=== PATIENT | female | born 1955 | race African-American/Black ===

== ENCOUNTER 2021-01-26 01:26 | Inpatient (IN) | payer MEDICARE, OTHER ==
[~2021-01-26] VITALS: Ht 157.5 cm; Wt 79.8 kg
[2021-01-26] MEDS ORDERED: METHYLPREDNISOLONE SOD SUCC 125 MG/2 ML VIAL IV STA (01:35)
[2021-01-26] MEDS ORDERED: IPRATROPIUM BROMIDE (0.02%) 0.5MG/2.5ML NEB HHN STA (01:35)
[2021-01-26] MEDS ORDERED: MAGNESIUM 2 G PREMIX 50 ML IV ONE (01:45)
[2021-01-26] MEDS: ALBUTEROL (0.083%) 2.5MG/3ML NEB HHN SCH ×3 (02:09→03:57)
[2021-01-26 02:14] LABS: BG BASE EXCESS -0.4 mmol/L (-2.0-2.0); BG DEOXYHEMOGLOBIN 7.8 % (0.0-5.0); BG FRACTION INSPIRED OXYGEN 21; BG METHEMOGLOBIN 0.3 % (0.0-1.5); BG OXYHEMOGLOBIN 89.9 % (94.0-97.0); BG PCO2 44.1 mmHg (35.0-45.0); BG PH 7.372 (7.350-7.450); BG PO2 67.1 mmHg (75.0-100.0); BG SAMPLE SITE RIGHT RADIAL; BG TOTAL HEMOGLOBIN 12.9 g/dL (12.0-18.0); BG VENT MODE ROOM AIR
[2021-01-26] MEDS ORDERED: ACETAMINOPHEN 325MG TABLET PO ONE (03:15)
[2021-01-26 03:35] LABS: BASOPHILS % 0.3 % (0.0-2.0); EOSINOPHILS % 0.5 % (0.0-5.0); HEMATOCRIT. 37.1 % (36.0-48.0); HEMOGLOBIN. 11.5 g/dL (12.0-16.0); LYMPHOCYTES % 20.4 % (20.0-50.0); MEAN CORPUSCULAR HEMOGLOBIN 22.5 pg (28.0-32.0); MEAN CORPUSCULAR VOLUME 72.7 fL (81.0-99.0); MEAN PLATELET VOLUME 8.3 fl (7.4-10.4); MONOCYTES % 5.4 % (2.0-8.0); NEUTROPHILS % 73.4 % (40.0-76.0); PLATELET 253 x1000/uL (130-400); RED CELL DISTRIBUTION WIDTH 16.4 % (11.6-14.6)
[2021-01-26 03:42] LABS: CHLORIDE 99 mEq/L (98-107)
[2021-01-26] MEDS ORDERED: SODIUM CHLORIDE 0.9% 1,000 ML IV ONE (04:30)
[2021-01-26] MEDS ORDERED: IPRATROPIUM/ALBUTEROL 0.5-3(2.5)MG/3ML NEB HHN PRN (06:45)
[2021-01-26] MEDS ORDERED: DOCUSATE SODIUM 100MG CAPSULE PO PRN (06:45)
[2021-01-26] MEDS ORDERED: MAGNESIUM/ALUMINUM HYDROXIDE/SIMETHICONE 30ML UDC PO PRN (06:45)
[2021-01-26] MEDS ORDERED: ACETAMINOPHEN 325MG TABLET PO PRN (06:45)
[2021-01-26] MEDS ORDERED: GUAIFENESIN 200MG/10ML SUGAR FREE UDC PO PRN (06:45)
[2021-01-26] MEDS ORDERED: LEVOFLOXACIN 500MG PREMIX 100 ML IV SCH (06:45)
[2021-01-26] MEDS ORDERED: ONDANSETRON HCL 4MG/2ML INJ IV PRN (06:45)
[2021-01-26] MEDS ORDERED: NALOXONE HCL 0.4MG/ML VIAL IV PRN (07:30)
[2021-01-26] MEDS: LEVOFLOXACIN 750MG PREMIX 150 ML IV SCH (08:43)
[2021-01-26] MEDS: ASPIRIN 81MG EC TABLET PO SCH (10:49)
[2021-01-26] MEDS: ENOXAPARIN 40MG/0.4ML SYR SUBCUT SCH (10:50)
[2021-01-26] MEDS: CLONIDINE 0.1MG TABLET PO PRN (10:51)
[2021-01-26] MEDS: METHYLPREDNISOLONE SOD SUCC 125 MG/2 ML VIAL IV SCH ×3 (10:52→21:51)
[2021-01-26] MEDS: HYDROCODONE/ACETAMINOPHEN 5/325MG TABLET PO PRN ×2 (10:54→21:51)
[2021-01-26] MEDS: AMLODIPINE 10MG TABLET PO SCH (11:21)
[2021-01-26 16:36] LABS: CREATINE KINASE 213 IU/L (26-192)
[2021-01-26] MEDS: IPRATROPIUM/ALBUTEROL 0.5-3(2.5)MG/3ML NEB HHN SCH (21:06)
[2021-01-26] MEDS: LEVETIRACETAM 500MG TABLET PO SCH (23:11)
[2021-01-26 23:32] LABS: CREATINE KINASE 251 IU/L (26-192)
[2021-01-27] VITALS (7 sets, daily range): BP systolic 132–153; BP diastolic 60–91
[2021-01-27] MEDS: METHYLPREDNISOLONE SOD SUCC 125 MG/2 ML VIAL IV SCH ×3 (01:01→11:27)
[2021-01-27] MEDS: IPRATROPIUM/ALBUTEROL 0.5-3(2.5)MG/3ML NEB HHN SCH ×2 (01:56→10:14)
[2021-01-27] MEDS ORDERED: MIRT45TA59 MT (04:49)
[2021-01-27] MEDS ORDERED: KEPP500 MT (04:49)
[2021-01-27] MEDS ORDERED: AM100 MT (04:49)
[2021-01-27] MEDS ORDERED: [UNRECOGNIZED DRUG - OTHER] PO (04:49)
[2021-01-27 07:24] LABS: BG BASE EXCESS 0.8 mmol/L (-2.0-2.0); BG CARBOXYHEMOGLOBIN 0.7 % (0.5-1.5); BG HCO3 ACT 25.6 mmol/L (22.0-26.0); BG METHEMOGLOBIN 0.3 % (0.0-1.5); BG OXYGEN SATURATION 90.9 % (92.0-98.5); BG PCO2 41.8 mmHg (35.0-45.0); BG PH 7.405 (7.350-7.450); BG SAMPLE SITE RIGHT RADIAL; BG TOTAL HEMOGLOBIN 13.1 g/dL (12.0-18.0); BG VENT MODE ROOM AIR
[2021-01-27] MEDS ORDERED: PNEUMOCOCCAL 23-VAL P-SAC VAC 0.5 ML IM ONE (08:00)
[2021-01-27] MEDS: ASPIRIN 81MG EC TABLET PO SCH (08:17)
[2021-01-27] MEDS: LEVETIRACETAM 500MG TABLET PO SCH ×2 (08:17→20:31)
[2021-01-27] MEDS: ENOXAPARIN 40MG/0.4ML SYR SUBCUT SCH (08:17)
[2021-01-27] MEDS: AMLODIPINE 10MG TABLET PO SCH (08:18)
[2021-01-27] MEDS: HYDROCODONE/ACETAMINOPHEN 5/325MG TABLET PO PRN ×2 (08:20→20:47)
[2021-01-27] MEDS ORDERED: LIDOCAINE HCL/PF 1% 2ML VIAL ONE (10:00)
[2021-01-27] MEDS ORDERED: INFLUENZA VACCINE 05/PF 0.5 ML SYRINGE IM ONE (10:00)
[2021-01-27] MEDS ORDERED: AMIT-188 PO (11:50)
[2021-01-27] MEDS ORDERED: LACTULOSE 20G/30ML UDC PO NR (12:00)
[2021-01-27 16:16] LABS: CHLORIDE 102 mEq/L (98-107); HEMATOCRIT. 33.3 % (36.0-48.0); HEMOGLOBIN. 10.8 g/dL (12.0-16.0); MEAN CORPUSCULAR HEMOGLOBIN 23.3 pg (28.0-32.0); MEAN CORPUSCULAR VOLUME 71.9 fL (81.0-99.0); MEAN PLATELET VOLUME 9.6 fl (7.4-10.4); PLATELET 230 x1000/uL (130-400); RED BLOOD CELL COUNT 4.63 mill/uL (4.2-5.4); RED CELL DISTRIBUTION WIDTH 16.5 % (11.6-14.6)
[2021-01-27 16:24] LABS: LDL CHOLESTEROL 117 mg/dL (5-100)
[2021-01-27 16:25] LABS: HDL CHOLESTEROL 55 mg/dL (40-59)
[2021-01-27] MEDS ORDERED: NA PHOS,M-B/NA PHOS,DI-BA ENEMA 118ML PR NR (16:45)
[2021-01-27] MEDS: CLONIDINE 0.1MG TABLET PO PRN (16:55)
[2021-01-27 17:54] LABS: PLATELET ESTIMATE NORMAL
[2021-01-27] MEDS: METHYLPREDNISOLONE SOD SUCC 40 MG/ML VIAL IV SCH (20:32)
[2021-01-27] MEDS: ZOLPIDEM TARTRATE 5MG TABLET PO PRN (20:47)
[2021-01-28] VITALS: BP 118/50
[2021-01-28 04:00] VITALS: BP 126/69
[2021-01-28 08:00] VITALS: BP 122/63
[2021-01-28] MEDS: ASPIRIN 81MG EC TABLET PO SCH (08:56)
[2021-01-28] MEDS: LEVETIRACETAM 500MG TABLET PO SCH ×2 (08:56→20:40)
[2021-01-28] MEDS: AMLODIPINE 10MG TABLET PO SCH (08:56)
[2021-01-28] MEDS: METHYLPREDNISOLONE SOD SUCC 40 MG/ML VIAL IV SCH (08:56)
[2021-01-28] MEDS: LEVOFLOXACIN 750MG PREMIX 150 ML IV SCH (08:56)
[2021-01-28] MEDS: ENOXAPARIN 40MG/0.4ML SYR SUBCUT SCH (08:57)
[2021-01-28 12:00] VITALS: BP 131/63
[2021-01-28 16:00] VITALS: BP 134/70
[2021-01-28] MEDS: HYDROCODONE/ACETAMINOPHEN 5/325MG TABLET PO PRN (16:25)
[2021-01-28 20:00] VITALS: BP 147/55
[2021-01-28] MEDS: ZOLPIDEM TARTRATE 5MG TABLET PO PRN (20:40)
[2021-01-29] VITALS: BP 167/77
[2021-01-29] MEDS: CLONIDINE 0.1MG TABLET PO PRN (00:35)
[2021-01-29] MEDS: HYDROCODONE/ACETAMINOPHEN 5/325MG TABLET PO PRN ×2 (00:40→21:18)
[2021-01-29 04:00] VITALS: BP 157/72
[2021-01-29 08:00] VITALS: BP 123/60
[2021-01-29] MEDS: AMLODIPINE 10MG TABLET PO SCH (08:13)
[2021-01-29] MEDS: ASPIRIN 81MG EC TABLET PO SCH (08:13)
[2021-01-29] MEDS: ENOXAPARIN 40MG/0.4ML SYR SUBCUT SCH (08:13)
[2021-01-29] MEDS: PREDNISONE 20MG TABLET PO SCH (08:13)
[2021-01-29] MEDS: LEVETIRACETAM 500MG TABLET PO SCH ×2 (08:13→21:15)
[2021-01-29 12:00] VITALS: BP 147/68
[2021-01-29] MEDS ORDERED: NA PHOS,M-B/NA PHOS,DI-BA ENEMA 118ML PR NR (15:15)
[2021-01-29 16:00] VITALS: BP 124/69
[2021-01-29 20:00] VITALS: BP 155/74
[2021-01-29] MEDS: MIRTAZAPINE 15MG TABLET PO SCH (21:15)
[2021-01-29] MEDS: ZOLPIDEM TARTRATE 5MG TABLET PO PRN (21:16)
[2021-01-29] MEDS: AMITRIPTYLINE 25MG TABLET PO SCH (21:16)
[2021-01-30] VITALS: BP 147/76
[2021-01-30 04:00] VITALS: BP 137/78
[2021-01-30] MEDS: HYDROCODONE/ACETAMINOPHEN 5/325MG TABLET PO PRN ×3 (05:25→21:02)
[2021-01-30 08:00] VITALS: BP 132/70
[2021-01-30] MEDS: LACTULOSE 20G/30ML UDC PO SCH (08:30)
[2021-01-30] MEDS: LEVETIRACETAM 500MG TABLET PO SCH ×2 (08:30→21:02)
[2021-01-30] MEDS: PREDNISONE 20MG TABLET PO SCH (08:31)
[2021-01-30] MEDS: ENOXAPARIN 40MG/0.4ML SYR SUBCUT SCH (08:31)
[2021-01-30] MEDS: ASPIRIN 81MG EC TABLET PO SCH (08:31)
[2021-01-30] MEDS: AMITRIPTYLINE 25MG TABLET PO SCH ×2 (08:31→21:05)
[2021-01-30] MEDS: AMLODIPINE 10MG TABLET PO SCH (08:31)
[2021-01-30] MEDS ORDERED: LEVOFLOXACIN 250MG TABLET PO SCH (11:00)
[2021-01-30 11:58] VITALS: BP 141/68
[2021-01-30 16:00] VITALS: BP 132/74
[2021-01-30 20:00] VITALS: BP 150/80
[2021-01-30] MEDS: MIRTAZAPINE 15MG TABLET PO SCH (21:02)
[2021-01-30] MEDS: ZOLPIDEM TARTRATE 5MG TABLET PO PRN (21:02)
[2021-01-31] VITALS: BP 191/86
[2021-01-31] MEDS: CLONIDINE 0.1MG TABLET PO PRN (00:20)
[2021-01-31 04:00] VITALS: BP 136/69
[2021-01-31 08:00] VITALS: BP 114/72
[2021-01-31] MEDS: LACTULOSE 20G/30ML UDC PO SCH (08:51)
[2021-01-31] MEDS: ENOXAPARIN 40MG/0.4ML SYR SUBCUT SCH (08:51)
[2021-01-31] MEDS: LEVETIRACETAM 500MG TABLET PO SCH ×2 (08:51→21:30)
[2021-01-31] MEDS: AMLODIPINE 10MG TABLET PO SCH (08:52)
[2021-01-31] MEDS: AMITRIPTYLINE 25MG TABLET PO SCH ×2 (08:52→21:33)
[2021-01-31] MEDS: ASPIRIN 81MG EC TABLET PO SCH (08:52)
[2021-01-31] MEDS: PREDNISONE 20MG TABLET PO SCH (08:52)
[2021-01-31 16:12] VITALS: BP 120/78
[2021-01-31 20:00] VITALS: BP 138/76
[2021-01-31] MEDS: MIRTAZAPINE 15MG TABLET PO SCH (21:30)
[2021-01-31] MEDS: ZOLPIDEM TARTRATE 5MG TABLET PO PRN (21:30)
[2021-02-01] VITALS (7 sets, daily range): BP systolic 115–162; BP diastolic 54–83
[2021-02-01] MEDS ORDERED: HYDROCODONE/ACETAMINOPHEN 5/325MG TABLET PO PRN (01:45)
[2021-02-01] MEDS: LEVETIRACETAM 500MG TABLET PO SCH ×2 (08:51→20:32)
[2021-02-01] MEDS: ENOXAPARIN 40MG/0.4ML SYR SUBCUT SCH (08:51)
[2021-02-01] MEDS: LACTULOSE 20G/30ML UDC PO SCH (08:51)
[2021-02-01] MEDS: ASPIRIN 81MG EC TABLET PO SCH (08:51)
[2021-02-01] MEDS: AMLODIPINE 10MG TABLET PO SCH (08:52)
[2021-02-01] MEDS: AMITRIPTYLINE 25MG TABLET PO SCH ×2 (08:52→20:32)
[2021-02-01] MEDS: PREDNISONE 20MG TABLET PO SCH (08:52)
[2021-02-01] MEDS: HYDROCODONE/ACETAMINOPHEN 5/325MG TABLET PO PRN (15:28)
[2021-02-01] MEDS ORDERED: ZOLPIDEM TARTRATE 5MG TABLET PO PRN (19:45)
[2021-02-01] MEDS: MIRTAZAPINE 15MG TABLET PO SCH (20:31)
[2021-02-01] MEDS: CLONIDINE 0.1MG TABLET PO PRN (23:40)
[2021-02-02 04:00] VITALS: BP 143/69
[2021-02-02 08:00] VITALS: BP 152/70
[2021-02-02] MEDS: ENOXAPARIN 40MG/0.4ML SYR SUBCUT SCH (08:15)
[2021-02-02] MEDS: AMITRIPTYLINE 25MG TABLET PO SCH (08:16)
[2021-02-02] MEDS: ASPIRIN 81MG EC TABLET PO SCH (08:16)
[2021-02-02] MEDS: LEVETIRACETAM 500MG TABLET PO SCH (08:16)
[2021-02-02] MEDS: PREDNISONE 20MG TABLET PO SCH (08:16)
[2021-02-02] MEDS: LACTULOSE 20G/30ML UDC PO SCH (08:16)
[2021-02-02] MEDS: AMLODIPINE 10MG TABLET PO SCH (08:23)
[2021-02-02] MEDS: HYDROCODONE/ACETAMINOPHEN 5/325MG TABLET PO PRN ×2 (08:23→14:27)
[2021-02-02 12:00] VITALS: BP 120/54
[2021-02-02 16:00] VITALS: BP 128/66
[2021-02-02 17:53] VITALS: BP 125/61
== END 2021-02-02 18:45 | disposition home or self-care (01) | DRG 140 ==
LOC: ER 01:26 → EDBD 01:26 → 8WST 05:15 → EDBEDREQ 05:25 → EDBEDREQTM 05:25 → ENRESERV 01-27 02:44
PROVIDERS: ADMIT Hospitalist; ATTEND Hospitalist
DX: J44.1 Chronic obstructive pulmonary disease with (acute) exacerbation (principal); N17.0 Acute kidney failure with tubular necrosis; J96.01 Acute respiratory failure with hypoxia; D63.8 Anemia in other chronic diseases classified elsewhere; F41.9 Anxiety disorder, unspecified; F17.210 Nicotine dependence, cigarettes, uncomplicated; I10 Essential (primary) hypertension; Z20.822 Contact with and (suspected) exposure to COVID-19; Z82.49 Family history of ischemic heart disease and other diseases of the circulatory system; Z71.6 Tobacco abuse counseling; Z59.00 Homelessness unspecified; R65.11 Systemic inflammatory response syndrome (SIRS) of non-infectious origin with acute organ dysfunction
CPT/HCPCS: 36415; 36600; 71045; 80053; 80061; 82375; 82550; 82805; 83605; 83880; 84484; 85025; 85379; 87426; 90686; 90732; 93005; 93970; 94640; 97162; 97166; 99291; C1893; J1650; J1956; J2920; J2930; J3475; J3490; J7040; J7512